=== PATIENT | male | born 1970 | race Caucasian/White ===

== ENCOUNTER 2016-08-27 16:22 | Emergency (ER) | payer OTHER ==
--- NOTE | ~2016-08-27 | ER ---
PATIENT'S NAME: LUISA, [facility] AGE: 46 Y [address] ROOM: [place] [address] LOCATION: [facility] ADMIT DATE: 08/27/2016 ER/Outpatient Report DISCHARGE DATE: 08/27/2016 FAMILY PHYSICIAN: Cristopher High MD ATTENDING PHYSICIAN: Apollo Torres Time of Arrival: 1628 hours. Time of Evaluation: 1630 hours. CHIEF COMPLAINT: Left index finger injury. HISTORY OF PRESENT ILLNESS: The patient is a 46-year-old male who presents to the emergency department today with a chief complaint of left index finger injury. It occurred 15 minutes prior to arrival while using a table saw. He does report his tetanus is not up to date. He has sharp pain, it is worse with movement, currently 5/10 in severity. PAST MEDICAL HISTORY: Restless legs syndrome. PAST SURGICAL HISTORY: None. SOCIAL HISTORY: The patient denies any tobacco use. Reports occasional alcohol use. Denies any illicit drug use. ALLERGIES: NO KNOWN DRUG ALLERGIES. MEDICATIONS: Please see list. PRIMARY CARE DOCTOR: Dr. Black. REVIEW OF SYSTEMS: All systems are reviewed by myself and negative with the exception of those discussed in HPI and past medical history. PHYSICAL EXAMINATION: VITAL SIGNS: Weight 85.8 kg, blood pressure 153/84, pulse 80, respiratory rate 20, temperature 97.9, oxygen saturation 98% on room air. PATIENT'S NAME: LUISA, [facility] AGE: 46 Y [address] ROOM: [place] [address] LOCATION: [facility] ADMIT DATE: 08/27/2016 ER/Outpatient Report DISCHARGE DATE: 08/27/2016 FAMILY PHYSICIAN: Cristopher High MD ATTENDING PHYSICIAN: Apollo Torres GENERAL: The patient is a 46-year-old male, appears his stated age, in mild acute distress at this time. HEENT: Head: Normocephalic, atraumatic. Pupils are equal, round, and reactive to light. NECK: Supple. There is no nuchal rigidity. CARDIOVASCULAR: Regular rate and rhythm. No murmurs, rubs, or gallops. LUNGS: Clear to auscultation bilaterally. No wheezes, rales, or rhonchi. ABDOMEN: Soft, nontender, and nondistended. No rebound, rigidity, or guarding. MUSCULOSKELETAL: The patient does have full range of motion of his affected finger. SKIN: The patient has an avulsion injury that involves most of the finger nail bed into the cuticle area. There is a laceration on the distal tip as well. It is 1.0 cm. LABORATORY DATA AND X-RAYS: Three-view x-ray of the finger is obtained. There is distal tip injury noted to the bone, otherwise unremarkable. IMPRESSION: 1. Table saw injury to the left index finger with 1.0 cm laceration with simple repair. 2. Initial visit. EMERGENCY DEPARTMENT COURSE: The patient was brought back to the examination room. Seen and evaluated by myself. Laboratory analysis and imaging are obtained as described by myself. I have discussed the risks and benefits of repair to the patient. The patient's finger is anesthetized with 1% lidocaine in 0.5% Marcaine without epinephrine in a digital block. The area is copiously irrigated with normal saline by myself. It does require 2 sutures to the distal aspect of the finger tip. There is avulsion injury to the finger nail bed. There is no exposed bone. Foreign bodies are removed. The wound is covered with bacitracin and nonadherent and then tube gauze placed. The patient is then written a prescription for Keflex for prophylactic antibiotics. I have asked that he follow up with the primary care doctor, Dr. Black in 7 days for re- evaluation and suture removal. The patient's tetanus was updated. The patient is agreeable without further questions at this time. DISPOSITION: The patient is discharged to home in good condition. PATIENT'S NAME: GEORGE MORAN [facility] AGE: 46 Y [address] ROOM: [place], [place] [address] LOCATION: [facility] ADMIT DATE: 08/27/2016 ER/Outpatient Report DISCHARGE DATE: 08/27/2016 FAMILY PHYSICIAN: Cristopher High MD ATTENDING PHYSICIAN: Apollo Torres DO KJR/kristen /[id number] d: 08/27/169 t: 08/30/16 1922, OUTPATIENT REPORT
== END 2016-08-27 17:20 | disposition disaster alternative care site (69) ==
LOC: GACC 16:22
PROC: 0HQGXZZ Repair Left Hand Skin, External Approach (ICD-10-PCS; principal; 2016-08-27)
DX: S61.211A Laceration without foreign body of left index finger without damage to nail, initial encounter (principal); Z23 Encounter for immunization; W27.0XXA Contact with workbench tool, initial encounter